=== PATIENT | male | born 1960 ===

== ENCOUNTER 2018-09-27 07:23 | Day surgery (SDC) | payer OTHER ==
[~2018-09-27] VITALS: Wt 97.0 kg
[~2018-09-27 07:23] MED LIST: HYDACE5 PO; PENVK500 PO
--- NOTE | 2018-09-27 07:35 | NUR ---
[facility]. Ambulatory in Day Surgery History, Chart, Medications and Allergies reviewed before start of procedure.Patient States Post-Procedure ride home has been arranged. Patient confirms NPO status and agrees with scheduled surgery.
--- NOTE | 2018-09-27 08:02 | NUR ---
09/27/18 0802 Gemma Hollingsworth History, Chart, Medications and Allergies reviewed before start of procedure.PATIENT CONFIRMS NPO STATUS AND AGREES WITH SCHEDULED PROCEDURE.MONITOR INTACT WITH CONTINUOUS PULSE OXIMETRY AND INTERMITTENT BP.O2 VIA N/C INTACT THROUGHOUT SEDATION/PROCEDURE. 3-LEAD EKG REVIEWED WITH PHYSICIAN PRIOR TO START OF PROCEDURE.PATIENT DETERMINED TO BE ASA APPROPRIATE FOR PROPOFOL SEDATION PRIOR TO START OF PROCEDURE BY DR. OGLESBY.
--- NOTE | 2018-09-27 09:10 | NUR ---
PT TOLERATED LIQUIDS WELL. PT RX FOR CIPRO AND FLAGYL CALLED INTO [facility] IN [place]. REVIEWED DISCHARGE INSTRUCTIONS WITH PT. IV DC'D INTACT.
--- NOTE | 2018-09-27 09:14 | NUR ---
Patient States Post-Procedure ride home has been arranged. Discharged via wheelchair to private car for ride home.
== END 2018-09-27 09:15 | disposition home or self-care (01) ==
LOC: ORSCMMR 07:23 → ORD 08:30 → ORSCMMR 08:30
PROVIDERS: Internal Medicine Gastroenterology
PROC: 0DBN8ZX Excision of Sigmoid Colon, Via Natural or Artificial Opening Endoscopic, Diagnostic (ICD-10-PCS; principal; 2018-09-27 08:30)
DX: Z86.010 Personal history of colon polyps (principal); K63.5 Polyp of colon; D12.5 Benign neoplasm of sigmoid colon; Z80.0 Family history of malignant neoplasm of digestive organs; K57.30 Diverticulosis of large intestine without perforation or abscess without bleeding; F17.210 Nicotine dependence, cigarettes, uncomplicated
CPT/HCPCS: 88305; J2704; J7120

== ENCOUNTER → 2019-01-11 | Outpatient (CLI) | payer OTHER | END | disposition home or self-care (01) | LOC: LAB SHORT 07:56 → LAB 07:56 | DX: L82.1 Other seborrheic keratosis (principal) | CPT/HCPCS: 88305 ==